=== PATIENT | male | born 1980 | race Caucasian/White ===

== ENCOUNTER 2023-10-09 01:46 | Emergency (ER) | payer OTHER, SELFPAY ==
--- NOTE | ~2023-10-09 | XR_ITS ---
Left wrist Technique: PA, oblique, lateral, and ulnar deviation views were obtained. Clinical History: Pain Findings: No acute fracture or dislocation is seen. Osseous alignment is anatomic. Joint spaces are p reserved. Soft tissues are unremarkable. Impression: Unremarkable left wrist radiographs. Reviewed, dictated and finalized at location . Impression: Unremarkable left wrist radiographs.
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
[2023-10-09 01:47] VITALS: BP 148/93; PULSE 100; RESP 12; TEMP 36.5; O2SAT 98
[2023-10-09] MEDS: TETANUS,DIPHTHERIA,AC PERTUSSIS ADULT (0.5 ML) BOOSTRIX IM (02:02)
--- NOTE | 2023-10-09 02:10 | PC.NURSE ---
Patient states that he used ice two days ago. Patient also denies any PMH.
[2023-10-09] MEDS: MORPHINE SULFATE (*CRX) 4 MG/ML INJ IM (02:15)
[2023-10-09 02:41] VITALS: BP 182/97; PULSE 88; RESP 16; O2SAT 96
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
[2023-10-09 03:23] VITALS: BP 167/94; PULSE 90; RESP 20; O2SAT 97
[2023-10-09 04:33] VITALS: BP 164/93; PULSE 94; RESP 19; O2SAT 98
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
[2023-10-09 05:05] VITALS: BP 154/71; PULSE 96; RESP 16; O2SAT 96
[2023-10-09 06:38] VITALS: BP 135/82; PULSE 67; RESP 15; O2SAT 97
--- NOTE | 2023-10-09 08:49 | PC.NURSE ---
Patient awake and ambulatory.
== END 2023-10-09 09:08 | disposition home or self-care (01) ==
PROVIDERS: Emergency Provider Student in an Organized Health Care Education/Training Program; PCP Pediatrics
DX: S00.01XA Abrasion of scalp, initial encounter (principal); S63.502A Unspecified sprain of left wrist, initial encounter; F10.129 Alcohol abuse with intoxication, unspecified; Z23 Encounter for immunization; Y90.9 Presence of alcohol in blood, level not specified; Y04.2XXA Assault by strike against or bumped into by another person, initial encounter
CPT/HCPCS: 70450; 70486; 72125; 73110; 90471; 90715; 96372; 99284; A9270; J2270